=== PATIENT | male | born 1980 | race Two or more races ===

== ENCOUNTER 2024-09-12 09:50 | Emergency (ER) | payer SELFPAY ==
[~2024-09-12] VITALS: Ht 165.1 cm; Wt 99.8 kg
[2024-09-12 11:27] LABS: CALCIUM 8.1 mg/dL (8.5-10.1); CREATININE 0.9 mg/dL (0.6-1.3); POTASSIUM 3.7 mmol/L (3.5-5.1)
[2024-09-12] MEDS: IV NS 1000 ML 1,000 ML IV PRN (11:47)
[2024-09-12] MEDS ORDERED: IOHEXOL 300MG/ML 100 ML INFUS..BTL ONE (12:08)
[2024-09-12] MEDS ORDERED: SWABABLE VALVE TRANSFER SET EA MC ONE (12:08)
[2024-09-12] MEDS ORDERED: IV NORMAL SALINE 250 ML IV ONE (12:08)
[2024-09-12 14:26] VITALS: BP 106/65; TEMP 98.5; O2SAT 99
== END 2024-09-12 14:27 | disposition home or self-care (01) ==
LOC: ER 09:50
DX: S10.83XA Contusion of other specified part of neck, initial encounter (principal); Y04.8XXA Assault by other bodily force, initial encounter; Y93.89 Activity, other specified; Y92.89 Other specified places as the place of occurrence of the external cause; Y99.8 Other external cause status
CPT/HCPCS: 99285; 96360; 70491; 96361; 80048; 36415; 70360; Q9967; J7040